=== PATIENT | female | born 1985 | race Caucasian/White ===

== ENCOUNTER 2020-03-09 14:56 | Outpatient (CLI) | payer OTHER, BC, SELFPAY ==
[2020-03-09 15:33] LABS: Hematocrit 41.1 % (37.0-47.0); Hemoglobin 13.8 g/dL (12.0-15.0); Mean Corpuscular HGB Conc 33.6 g/dl (32-36); Mean Corpuscular Hemoglobin 29.6 pg (26-34); Mean Platelet Volume 10.3 fl (7.4-10.4); Platelet Count Result 274 k/mm3 (150-375); Red Blood Count 4.67 M/mm3 (4.2-5.4); Red Cell Distribution Width 14.6 % (11.5-14.5); White Blood Count 8.4 K/mm3 (4.5-10.0)
[2020-03-10 07:47] LABS: Rapid Plasma Reagin Non-Reactive (NonReactive)
== END 2020-03-09 14:57 | disposition home or self-care (01) ==
PROVIDERS: Visit Provider Obstetrics & Gynecology
DX: Z01.818 Encounter for other preprocedural examination (principal)
CPT/HCPCS: 36415; 85027; 85461; 86592

== ENCOUNTER 2020-03-10 09:05 | Inpatient (IN) | payer OTHER, BC, SELFPAY ==
[2020-03-10] VITALS (27 sets, daily range): BP systolic 101–134; BP diastolic 42–102; PULSE 65–120; RESP 16–18; TEMP 36–37; O2SAT 95–99; BMI 41.1
--- NOTE | 2020-03-10 09:15 | LDADM ---
This patient, Bozena Paredes, was admitted to Labor/Delivery/Recovery 119 on 03/10/20 at 09:05. Plans for section, pain management and were discussed with patient. Patient/family oriented to hospital policies and general routines including ID bracelet, bed and alarms, visiting hours, pain management, procedures, bathroom and other care routines, personal items, smoking policy, room service/diet and guest tray routines, security routines, and visiting hours. Patient/Family are encouraged to report perceived risks to care and to ask questions if they do not understand what they are told or what they should do. See OBIX for further documentation.
[2020-03-10] MEDS: LACTATED RINGERS 1,000 ML 125 ML IV CONT ×2 (09:42→10:38)
--- NOTE | 2020-03-10 10:17 | LDADM ---
This patient, Bozena Paredes, was admitted to Labor/Delivery/Recovery 119 on 03/10/20 at 09:05. Plans for labor, pain management and were discussed with patient. Patient/ oriented to hospital policies and general routines including ID bracelet, bed and alarms, visiting hours, pain management, procedures, bathroom and other care routines, personal items, smoking policy, room service/diet and guest tray routines, infant security routines, call light, and visiting hours. Patient/ are encouraged to report perceived risks to care and to ask questions if they do not understand what they are told or what they should do. See OBIX for further documentation.
[2020-03-10] MEDS: ceFAZolin 2 GM/D5W 50 ML 2 GM/50 ML BAG IVPB (10:38)
--- NOTE | 2020-03-10 11:03 | PM.IMHP ---
H&P: HPI History of Present Illness Chief complaint: section Narrative: Bozena Paredes is a 34 year old female presents for primary section due to breech presentation. Also recent ultrasound showed oligohydramnios and therefore would proceeding with delivery today as opposed to next week as originally scheduled. records are on the chart and no specific other issues are noted. Review of Systems Review of Systems: All systems reviewed & are unremarkable except as noted in HPI and below PMFSH Family History Family History Father Hypertension Mother Hypertension COPD (chronic obstructive pulmonary disease) Social History Social History Smoking status: Never smoker Substance use: never Gender identity (if verbalized by the patient): Female Sexual Orientation (if Verbalized by the Patient): Straight or Heterosexual Spiritual care concerns: No Meds Home Medications and Allergies Home Medications Medication Instructions Recorded Confirmed Type PNV cmb#95-ferrous fumarate-FA 1 tablet PO DAILY 02/21/20 02/21/20 History [] Allergies Allergy/AdvReac Type Severity Reaction Status Date / Time prednisone Allergy Unknown breast Verified 09/15/17 21:20 tenderness, abnormal menses, spotting Vital Signs Vital Signs - 24 hr 03/10/20 09:29 Pulse Rate 120 H Blood Pressure 126/85 Exam Const: General: no acute distress Resp: Auscultation: clear to auscultation bilaterally Cardio: Rate: regular rate Rhythm: regular rhythm GI: GI Palp: Yes Soft to palpation Other: Fundal height 39cm breech by Darin maneuver heart tones 140 Assessment and Plan Assessment and plan (1) Term : Code(s): Z34.90 - Encounter for supervision of normal , unspecified, unspecified trimester Status: Acute (2) Breech presentation: Code(s): O32.1XX0 - Maternal care for breech presentation, not applicable or unspecified Status: Acute Additional Plan Proceed with primary low-transverse section.
--- NOTE | 2020-03-10 11:54 | P.PCNOB_ITS ---
OB - Delivery Note Procedure events: Oligohydramnios (breech presentation) Route of delivery: Estimated blood loss (mL): 300 Anesthesia type: Spinal Disposition: PACU Narrative: Patient prepped draped usual manner for this procedure. Pfannenstiel incision was made which was then carried down to the fascia which was extended bilaterally the length of the skin incision. Superiorly and inferiorly dissected away from the muscles which were then bluntly dissected to develop the bladder flap. Uterus was scored with clear fluid noted and low transverse incision was made. Breech was delivered without difficulty cord clamped and cut and placenta was removed manually. Uterus was exteriorized closed using 0 Monocryl in a running interlocking manner with good approximation hemostasis noted. Onur was empirically placed in this area for hemostasis. Uterus was turned the abdomen all subfascial tissue was noted be hemostatic and the fascia was approximated using 0 Vicryl from left angle to midline right at Marlene good approximation noted. Subcutaneous tissue was hemostatic and approximated using 2 0 plain suture. [place] were then used to approximate the skin edges. Patient up procedure well sent to recovery room stable condition. [place] Baby Weeks of gestation at delivery: 39 Infant gender: Male Weight (pounds): 9 Weight (ounces): 5 score one minute: 9 score five minutes: 9
[2020-03-10] MEDS: OXYTOCIN 30 UNITS/NS 500 ML 30 UNITS/500 ML BAG 125 UNITS IV CONT (13:30)
--- NOTE | 2020-03-10 15:15 | PC.NURSE ---
Consulted with patient, mother reports infant eagerly latched for first feeding. Reviewed feeding cues, frequencies, duration of feedings, feeding elimination flow sheet, and signs of adequate intake. Demonstrated stimulation techniques to wake for feeding. Assisted with to breast. Reviewed positioning/alignment in football, holding breast in C hold and guided asymmetrical latch on. Discussed rational for each. was sleepy and made a few weak attempts in 15 minutes. Suggested mother skin to skin and attempt again in 30 minutes.
[2020-03-10] MEDS: DEXTROSE 5%/0.45% SOD CHL 1,000 ML 125 ML IV CONT (17:40)
[2020-03-10] MEDS: DOCUSATE SODIUM 100 MG CAPSULE PO (17:43)
[2020-03-10] MEDS: LANOLIN (LANSINOH) 7.5 GM CREAM 1 APPLIC TOPICAL (17:43)
--- NOTE | 2020-03-10 18:35 | PC.NURSE ---
1418 Pt admitted to room 282 per stretcher from labor and delivery after primary delivery of viable male infant at [address] Bryant. Baby was in Breech position. Mother is a and is choosing to breast feed . FOB present. Couple oriented to room, staffing and procedures; admission folder reviewed. Pt's VSS and assessment WNL.
[2020-03-10] MEDS: IBUPROFEN 600 MG TABLET PO (20:59)
[2020-03-11 00:35] VITALS: BP 123/80; PULSE 81; RESP 16; TEMP 36.2; O2SAT 95
[2020-03-11 05:02] LABS: Basophils Percent Auto 0.4 % (0.2-1.2); Eosinophils Absolute Auto 0.2 K/mm3 (0-0.3); Eosinophils Percent Auto 1.5 % (0-4.4); Hemoglobin 11.8 g/dL (12.0-15.0); Immature Granulocyte Absolute 0.03 K/mm3 (0.00-0.031); Immature Granulocyte Percent A 0.3 % (0-0.5); Lymphocytes Absolute Auto 2.26 K/mm3 (0.9-3.2); Mean Corpuscular HGB Conc 33.7 g/dl (32-36); Mean Corpuscular Hemoglobin 29.7 pg (26-34); Mean Corpuscular Volume 88.2 fl (80-100); Mean Platelet Volume 10.1 fl (7.4-10.4); Monocytes Absolute Auto 0.9 K/mm3 (0.1-0.6); Monocytes Percent Auto 8.9 % (2.6-8.5); Neutrophils Absolute Auto 6.5 K/mm3 (1.3-6.7); Neutrophils Percent Auto 65.9 % (45.5-73.1); Platelet Count Result 222 k/mm3 (150-375); Red Blood Count 3.97 M/mm3 (4.2-5.4); Red Cell Distribution Width 14.4 % (11.5-14.5); White Blood Count 9.8 K/mm3 (4.5-10.0)
[2020-03-11 05:05] VITALS: BP 124/78; PULSE 101; RESP 16; TEMP 36.6; O2SAT 98
[2020-03-11] MEDS: IBUPROFEN 600 MG TABLET PO ×3 (05:33→17:53)
[2020-03-11 08:05] VITALS: BP 121/70; PULSE 84; RESP 16; TEMP 36.6; O2SAT 100
[2020-03-11] MEDS: DOCUSATE SODIUM 100 MG CAPSULE PO ×2 (08:36→17:53)
[2020-03-11] MEDS: MULTIVIT/MIN/PREN/FOL AC/IRON TABLET 1 TAB PO (08:36)
--- NOTE | 2020-03-11 09:30 | PC.NURSE ---
Consult with pt., mother reports has been sleepy with difficulties latching. Mother has initiated pumping and has given EBM during the night. Discussed ICP suggestion of supplementation due to poor feeding status. Mother is willing to supplement as needed. Mother states she has just attempted to breast with no latch. She is attempting EBM by bottle, infant is sleepy and not suckling. Assisted with bottle feeding. Stimulated to wake and worked 10 min for 5mls EBM. Worked with for 15/20 minutes to nipple 15 mls of formula. With the last 5 mls infant was eagerly suckling with organized suck swallow.
--- NOTE | 2020-03-11 09:30 | PC.NURSE ---
Requested mother call out for assist next feeding. Discussed feeding plan to put infant to breast first, then supplement if no effective feeding and to pump.
--- NOTE | 2020-03-11 09:45 | WPDANLDPN2 ---
Anes-Prog Note L&D Date/Time: 03/11/20 09:45 Comfortable throughout: section Neuraxial method: spinal Epidural/Spinal procedure site: clean & non-tender Neuro status: Neuro function grossly intact. Cardiovascular status: normal Respiratory status: normal Airway patency: baseline Mental status: baseline Post-Op hydration status: normal Vital Signs: Last Vital Signs Temp 36.6 C 03/11/20 08:05 Pulse 84 03/11/20 08:05 Resp 16 03/11/20 08:05 BP 121/70 03/11/20 08:05 Pulse Ox 100 03/11/20 08:05 I/O: Intake & Output 03/10/20 03/11/20 03/11/20 23:59 07:59 15:59 Intake Total 900 1200 Output Total 175 2200 600 Balance 725 -1000 -600 Post-procedural complaints: none Patient feedback: Patient satisfied with anesthetic care.
--- NOTE | 2020-03-11 09:46 | WPDANLDNPN2 ---
Anes-Prog Note L&D-Neuraxial Date/Time: 03/11/20 09:46 Neuraxial medications: intrathecal PF morphine Opiod-related complaints: none Patient feedback: Patient satisfied with post-operative pain management.
--- NOTE | 2020-03-11 12:37 | P.PNOB_ITS ---
OB - PN: Subj Subjective Date/time seen: 03/11/20 12:37 Patient comments: pain well controlled (some soreness) and tolerating diet baby status: doing well feeding status: breast and bottle feeding Narrative: s/p pLTCS secondary to breech presentation. Feeling sore, but doing well overall. Ambulating, Tolerating diet. OB - PN: Obj Data Labs CBC & Chem 7: 03/11/20 04:53 Labs: Laboratory Results - last 24 hr 03/11/20 04:53 WBC 9.8 RBC 3.97 L Hgb 11.8 L Hct 35.0 L MCV 88.2 MCH 29.7 MCHC 33.7 RDW 14.4 Plt Count 222 MPV 10.1 Immature Gran % (Auto) 0.3 Neut % (Auto) 65.9 Lymph % (Auto) 23.0 [place] % (Auto) 8.9 H Eos % (Auto) 1.5 Baso % (Auto) 0.4 Lymph # (Auto) 2.26 [place] # (Auto) 0.9 H Eos # (Auto) 0.2 Baso # (Auto) 0.0 Abs Immat Gran (auto) 0.03 Absolute Neuts (auto) 6.5 Absolute Nucleated RBC 0.0 Nucleated RBC % 0.0 OB - PN A/P Assessment and Plan (1) delivery, delivered, current hospitalization: Code(s): O82 - Encounter for delivery without indication Status: Acute Assessment and Plan: Routine post post op care Pain management Ambulate Time Spent With Patient Time: Total time spent is greater than 50% in coordination of care (as documented) at patient's floor/unit and/or counseling patient: Exam Const: General: comfortable, no acute distress, alert and awake Orientation/consciousness: patient oriented x3 Resp: Effort & Inspection: normal respiratory effort Cardio: Rate: regular rate
[2020-03-11 19:17] VITALS: BP 133/92; PULSE 101; RESP 16; TEMP 36.7; O2SAT 99
[2020-03-12] MEDS: IBUPROFEN 600 MG TABLET PO ×2 (03:22→13:53)
[2020-03-12 07:00] VITALS: BP 112/67; PULSE 101; RESP 18; TEMP 37.1; O2SAT 99
[2020-03-12] MEDS: MULTIVIT/MIN/PREN/FOL AC/IRON TABLET 1 TAB PO (07:16)
[2020-03-12] MEDS: DOCUSATE SODIUM 100 MG CAPSULE PO (07:17)
--- NOTE | 2020-03-12 10:20 | PC.NURSE ---
Mother called out for assist with feeding, reporting was not latching during the night and fussy with attempts. latched a few times nursing inconsistently, mother then supplemented. Mother was pleased latched the last feeding with assist from RN. Mother believes her milk is transitioning in and states she could hear swallowing last feeding. Advised mother to self express milk into infant's mouth before starting latch. Mother is able to independently latch infant with appropriate positioning/alignment football positioning. Infant licked at self expressed milk and began eagerly rooting. Mother latched deeply, he quickly began nursing with long draws and freq swallowing. Mother denies discomfort with this feeding. Discussed when to discontinue supplementation. Advised mother if continues to latch and nurse as this feeding, to discontinue supplement and only supplement if he refuses to latch. Mother is planning on discharge this day. Mother is feeding as required and waking to feed if needed. Infant is currently meeting outcomes for weight, output, jaundice and feeding frequencies. Mother states she feels confident to continue effective at home. Mother feels latch issues are not resolved with her milk in. Reviewed transition to breast milk, signs of adequate intake, and engorgement/relief. Instructed to call ICP if intake/output less than required. Reviewed regular medications mother is taking. Information provided per [place]. Reviewed community resources on the [facility] website and in the Mom/Baby guide. Information on outpatient services provided. Mother has no further questions at this time.
--- NOTE | 2020-03-12 12:21 | P.PNOB_ITS ---
OB - PN: Subj Subjective Date/time seen: 03/12/20 12:21 Patient comments: pain well controlled [place] baby status: doing well feeding status: pumping and bottle feeding Narrative: Pain controlled, ambulating, tolerating diet, passing flatus. OB - PN: Obj Data Labs CBC & Chem 7: 03/11/20 04:53 OB - PN A/P Assessment and Plan (1) delivery, delivered, current hospitalization: Code(s): O82 - Encounter for delivery without indication Status: Acute Assessment and Plan: Routine post post op care Pain management Ambulate Ok for DC home today Time Spent With Patient Time: Total time spent is greater than 50% in coordination of care (as documented) at patient's floor/unit and/or counseling patient: Exam Const: General: comfortable, no acute distress, alert and awake Orientation/consciousness: patient oriented x3 Resp: Effort & Inspection: normal respiratory effort Auscultation: clear to auscultation bilaterally Cardio: Rate: regular rate Rhythm: regular rhythm GI: Other: Soft, some tenderness. Incision C/D/I, [place] in place. Some erythema from bandage tape. Neuro: General: patient oriented x3
--- NOTE | 2020-03-12 12:23 | P.DS_ITS ---
DS: Admitting Diagnosis Admitting Diagnosis Admitting Diagnosis: Encounter for supervision of normal , unspecified, unspecified trimester Breech presentation DS: Discharge Diagnosis Discharge Diagnosis (1) delivery, delivered, current hospitalization: Code(s): O82 - Encounter for delivery without indication Status: Acute Assessment and Plan: Routine post post op care Pain management Ambulate Ok for DC home today DS: Summary Time Spent with Patient Time attestation: Total time spent providing and/or coordinating discharge services: Exam Const: General: comfortable, no acute distress, alert and awake Orientation/consciousness: patient oriented x3 Resp: Effort & Inspection: normal respiratory effort Auscultation: clear to auscultation bilaterally Cardio: Rate: regular rate Rhythm: regular rhythm GI: Other: Soft, some tenderness. Incision C/D/I, [place] in place. Some erythema from bandage tape. Neuro: General: patient oriented x3 Discharge Plan Discharge Attending physician on discharge: Thien Bryant Discharging Clinician: Oscar Brannon Patient Disposition: Home, Self-Care Activity: as tolerated Diet: regular Patient Instructions: Antibiotic Form Stand Alone Forms: General Discharge Information Follow-up/Referrals: Thien Bryant MD [Physician] - Discharge Medications: New hydrocodone-acetaminophen 5-325 mg Tablet 1 tab PO Q6-8H PRN (Reason: Moderate Pain (4-6)) Qty: 18 RF: 0 docusate sodium 100 mg Capsule 100 mg PO BID Qty: 60 RF: 0 ibuprofen 600 mg Tablet 600 mg PO Q6H PRN (Reason: Cramping) Qty: 60 RF: 0 Continued PNV cmb#95-ferrous fumarate-FA [] 28 mg iron- 800 mcg Tablet 1 tablet PO DAILY RF: 0 Date of admission: 03/10/20 09:05 Primary Care Provider: PHYSICIAN,INDUSTRIAL ENGINEER Admitting Provider: Thine Bryant Attending physician on admission: Thien Bryant
--- NOTE | 2020-03-12 18:53 | PC.NURSE ---
1530 Mother read discharge papers for herself and baby; signed discharge papers in understanding.
[2020-03-13 11:19] VITALS: BP 131/85; PULSE 51; RESP 20; TEMP 36.9; O2SAT 100
== END 2020-03-12 16:00 | disposition home or self-care (01) | DRG 788 ==
LOC: ANHOB2 03-12 14:40 → ANHLDR 03-13 08:36 → ANHOB2 03-13 08:36
PROVIDERS: Admitting Provider Obstetrics & Gynecology; Visit Provider Obstetrics & Gynecology
PROC: 10D00Z1 Extraction of Products of Conception, Low, Open Approach (ICD-10-PCS; CPT 59514; principal; 2020-03-10 11:30)
DX: O41.03X0 Oligohydramnios, third trimester, not applicable or unspecified (principal); Z37.0 Single live birth; Z3A.39 39 weeks gestation of pregnancy; O32.1XX0 Maternal care for breech presentation, not applicable or unspecified
CPT/HCPCS: 36415; 85025; A9270; J0131; J0690; J2274; J2405; J2590; J7120

== ENCOUNTER 2021-11-25 15:44 | Emergency (ER) | payer OTHER, SELFPAY ==
--- NOTE | 2021-11-25 15:49 | ED.EAR ---
HPI - Ear Problem General Chief complaint: Ear Stated complaint: Lt Ear Pain Time Seen by Provider: 11/25/21 15:52 Source: patient Mode of arrival: ambulatory Limitations: no limitations History of Present Illness HPI Narrative: 36 y/o female presented for c/o left ear pain and associated sinus pressure/congestion x2 week. Pain is worsening. Recent covid 10/2021, since then has had cough. Was taking zyrtec prior to covid, has not been taking anything for allergy symptoms. Denies tinnitus, vertigo, cp, sob, wheezing, n/v/d/f/c. MD Complaint: ear pain Related Data Home Medications Medication Instructions Recorded Confirmed drospirenone-ethinyl estradiol 1 tablet PO DAILY 11/25/21 11/25/21 Allergies Allergy/AdvReac Type Severity Reaction Status Date / Time prednisone Allergy Unknown breast Verified 11/25/21 15:58 tenderness, abnormal menses, spotting Review of Systems Review of Systems: CONSTITUTIONAL: Denies malaise, chills, or fever. EYES: Denies visual changes, redness, or discharge. ENT: reports ear pain rhinorrhea, congestion, sinus pain CARDIOVASCULAR: Denies chest pain, palpitations, or edema. RESPIRATORY: reports cough denies dyspnea. GASTROINTESTINAL: Denies abdominal pain, nausea, vomiting, diarrhea SKIN: Denies rash or itching. MUSCULOSKELETAL: Denies myalgia. NEUROLOGIC: Denies headache. All systems reviewed & are unremarkable except as noted in HPI and below PMFSH Family History Family History Father Hypertension Mother Hypertension COPD (chronic obstructive pulmonary disease) Social History Social History Smoking status: Never smoker Substance use: never Gender identity (if verbalized by the patient): Female Sexual Orientation (if Verbalized by the Patient): Straight or Heterosexual Spiritual care concerns: No Comments At time of signature, agree with nursing past medical, surgical, social and family history. There is no relevant family history pertinent to the presenting complaint Exam Narrative: GENERAL: Ill-appearing no acute distress. HEAD: Normocephalic EYES: PERRLA, conjunctivae clear ENT: Nares clear. Mucous membranes moist. TM pearly arana, dull bilaterally, left canal erythematous; no tragal tenderness. Oropharynx not erythematous without lesions. Tonsils not enlarged and without exudate, no drooling, no hoarseness, no trismus, uvula midline. NECK: Supple. No lymphadenopathy CHEST: Clear to auscultation, breath sounds equal. No wheezing, rhonchi, rales, or stridor. No respiratory distress, speaks in full sentences. HEART: Regular rate and rhythm. No murmur heard. SKIN: Warm, dry, no rash. NEURO: Alert and oriented x3. PSYCH: Normal mood and affect Course Course Emergency Course: Patient is aware of diagnosis, understands and agrees to treatment plan. Anticipatory guidance given. Patient agrees to follow-up as directed and is aware of reasons to seek care at the emergency department. Portions of this record may have been created with voice recognition software Level of Care: Express Care Visit Vital Signs Vital signs: Reviewed Medical Decision Making MDM Narrative Medical decision making narrative: Pt presented with 2 weeks of URI sx unrelieved with otc meds. No signs TM rupture. She will f/u with pcp. Pt is appropriate for outpt treatment. Differential Diagnosis Differential Diagnosis: Influenza, covid, sinusitis, OM, strep pharyngitis, URI Discharge Plan Discharge Clinical Impression: URI (upper respiratory infection) Qualifiers: URI type: unspecified URI Qualified Code(s): J06.9 - Acute upper respiratory infection, unspecified Acute otalgia Qualifiers: Laterality: left Qualified Code(s): H92.02 - Otalgia, left ear Patient Disposition: Home, Self-Care Condition: Stable Instructions: Antibiotic Form, Ear Infection (ED)
[2021-11-25 15:51] VITALS: BP 135/81; PULSE 101; RESP 18; TEMP 36.3; O2SAT 98
== END 2021-11-25 16:04 | disposition home or self-care (01) ==
PROVIDERS: Emergency Provider Nurse Practitioner Family
DX: J06.9 Acute upper respiratory infection, unspecified (principal); H92.02 Otalgia, left ear; Z86.16 Personal history of COVID-19
CPT/HCPCS: 99213; G0463

== ENCOUNTER 2022-01-31 10:02 | Emergency (ER) | payer OTHER, SELFPAY ==
[2022-01-31 10:30] VITALS: BP 125/81; PULSE 92; RESP 18; TEMP 36.9; O2SAT 98
--- NOTE | 2022-01-31 10:45 | ED.URI ---
HPI - URI/Sore Throat General Chief Complaint: Upper Respiratory Infection Stated Complaint: congestion,nausea Time Seen by Provider: 01/31/22 10:45 Source: patient Mode of arrival: ambulatory Limitations: no limitations History of Present Illness HPI Narrative: 36-year-old female presents with complaint of sinus congestion, sinus pressure, runny nose, postnasal drainage, fatigue for 3 weeks. Reports some days her sinuses feel clear other days her sinuses feel full. Zyrtec daily. States that nasal drainage has gone from clear to yellowish-green. Reports ear fullness. Woke up this morning with dizziness. No nausea vomiting diarrhea. No fever chills. All systems reviewed and negative except as noted above. Related Data Home Medications Medication Instructions Recorded Confirmed drospirenone-ethinyl estradiol 1 tablet PO DAILY 11/25/21 01/31/22 Allergies Allergy/AdvReac Type Severity Reaction Status Date / Time prednisone Allergy Unknown breast Verified 01/31/22 10:44 tenderness, abnormal menses, spotting Review of Systems Review of Systems: CONSTITUTIONAL: Denies fever, chills, or sweats. Reports fatigue EYES: Denies visual changes, redness, or discharge. ENT: Reports rhinorrhea, congestion, sore throat, and otalgia. CARDIOVASCULAR: Denies chest pain, palpitations, or edema. RESPIRATORY: Denies cough or dyspnea. GASTROINTESTINAL: Denies abdominal pain, nausea, vomiting, or diarrhea. GENITOURINARY: Denies dysuria or hematuria. SKIN: Denies rash or itching. MUSCULOSKELETAL: Denies back pain, joint pain, or myalgia. NEUROLOGIC: Denies headache, numbness, or weakness. PSYCHIATRIC: Denies anxiety or depression. All other systems reviewed are negative, except as documented in HPI. [facility] Family History Family History (System 01/26/22 @ 12:18 by Skylar Alcantara) Father Hypertension Mother Hypertension COPD (chronic obstructive pulmonary disease) Social History Social History (System 01/26/22 @ 12:18 by Skylar Alcantara) Smoking status: Never smoker Substance use: never Gender identity (if verbalized by the patient): Female Sexual Orientation (if Verbalized by the Patient): Straight or Heterosexual Spiritual care concerns: No Comments At time of signature, agree with nursing past medical, surgical, social and family history. There is no relevant family history pertinent to the presenting complaint. Exam Narrative: GENERAL: This is a well-nourished, well-developed patient, in no apparent distress. HEAD: normocephalic, atraumatic. EYES: PERRL. Sclera clear/white. Vision is grossly intact. EARS: External ears normal, auditory canals clear and without drainage, TMs normal without perforation. Hearing grossly intact. NOSE: External nose normal with clear nasal drainage, mild congestion, maxillary sinus tenderness bilaterally. THROAT: Mucous membranes moist, posterior pharynx Postnasal drainage noted. NECK: Neck supple, non-tender without lymphadenopathy, masses or thyromegaly. CARDIOVASCULAR: Regular rate and rhythm without murmurs, gallops, or rubs. RESPIRATORY: Clear to auscultation. Breath sounds equal bilaterally. No wheezes, rales, or rhonchi. SKIN: warm, Dry, intact with no suspicious lesions or rash, good texture and turgor. NEURO: awake, alert, and oriented to person, place and time. There were no obvious focal neurologic abnormalities. EXTREMITIES: Normal range of motion to all extremities. Course Course Level of Care: Express Care Visit Vital Signs Vital signs: Vital Signs Temperature 36.9 C 01/31/22 10:30 Pulse Rate 92 01/31/22 10:30 Respiratory Rate 18 01/31/22 10:30 Blood Pressure 125/81 01/31/22 10:30 Pulse Oximetry 98 01/31/22 10:30 Temperature 36.9 C 01/31/22 10:30 Pulse Rate 92 01/31/22 10:30 Respiratory Rate 18 01/31/22 10:30 Blood Pressure 125/81 01/31/22 10:30 Pulse Oximetry 98 01/31/22 10:30 Reviewed MDM
== END 2022-01-31 11:00 | disposition home or self-care (01) ==
PROVIDERS: Emergency Provider Nurse Practitioner Family
DX: J01.90 Acute sinusitis, unspecified (principal); Z86.16 Personal history of COVID-19
CPT/HCPCS: 99213; G0463

== ENCOUNTER 2022-09-01 16:56 | Emergency (ER) | payer OTHER, SELFPAY ==
[2022-09-01 17:05] VITALS: BP 127/81; PULSE 94; RESP 18; TEMP 36.7; O2SAT 98
--- NOTE | 2022-09-01 18:02 | ED.URI ---
HPI - URI/Sore Throat General Chief Complaint: Upper Respiratory Infection Stated Complaint: Congestion,Lt Ear Irritation Source: patient Mode of arrival: ambulatory History of Present Illness HPI Narrative: This is a 37-year-old female who presented to our urgent care with complaints of nasal , ear and chest congestion. I uncontrollable cough with yellowish to dark brownish secretion. Patient notes that she has had these symptoms since August 18. Patient notes that she took Mucinex at home along and use a nasal steamer with no relief. Patient notes that pressure in her left ear worsened she decided to come to our . The patient denies SOB, CP, palpitation, extremity numbness, lightheadedness, dizziness, constipation, diarrhea, chills, or fever. Related Data Allergies Allergy/AdvReac Type Severity Reaction Status Date / Time prednisone AdvReac Unknown breast Verified 09/01/22 17:01 tenderness, abnormal menses, spotting Review of Systems Review of Systems: A 14 organ system Review of Systems was performed and pertinent positives included in the HPI, otherwise remaining ROS is negative. COUNT INCLUDES THE [facility] Family History Family History (System 01/26/22 @ 12:18 by Skylar Alcantara) Father Hypertension Mother Hypertension COPD (chronic obstructive pulmonary disease) Social History Social History (System 01/26/22 @ 12:18 by Skylar Alcantara) Smoking status: Never smoker Substance use: never Gender identity (if verbalized by the patient): Female Sexual Orientation (if Verbalized by the Patient): Straight or Heterosexual Spiritual care concerns: No Exam Narrative: GENERAL: This is a well-nourished, well-developed patient, in no apparent distress. HEAD: normocephalic, atraumatic. EYES: PERRL. Sclera clear/white. Vision is grossly intact. EARS: External ears normal, auditory canals clear and without drainage, TMs normal without perforation. Hearing grossly intact. NOSE: External nose normal with no obvious nasal discharge, nares without redness, no rhinorrhea. THROAT: Mucous membranes moist, posterior pharynx clear. NECK: Neck supple, non-tender without lymphadenopathy, masses or thyromegaly. CARDIOVASCULAR: Regular rate and rhythm without murmurs, gallops, or rubs. RESPIRATORY: Clear to auscultation. Breath sounds equal bilaterally. No wheezes, rales, or rhonchi. GASTROINTESTINAL: Abdomen soft, non-tender, nondistended. Bowel sounds are active. No hepato-splenomegaly, or palpable masses. No guarding. SKIN: warm, intact with no suspicious lesions or rash, good texture and turgor. NEURO: awake, alert, and oriented to person, place and time. There were no obvious focal neurologic abnormalities. EXTREMITIES: Normal range of motion. No edema. No calf tenderness. Course Course Level of Care: Express Care Visit Vital Signs Vital signs: Vital Signs Temperature 98.0 F 09/01/22 17:05 Pulse Rate 94 09/01/22 17:05 Respiratory Rate 18 09/01/22 17:05 Blood Pressure 127/81 09/01/22 17:05 Pulse Oximetry 98 09/01/22 17:05 Oxygen Delivery Room Air 09/01/22 17:05 Temperature 98.0 F 09/01/22 17:05 Pulse Rate 94 09/01/22 17:05 Respiratory Rate 18 09/01/22 17:05 Blood Pressure 127/81 09/01/22 17:05 Pulse Oximetry 98 09/01/22 17:05 Oxygen Delivery Room Air 09/01/22 17:05 MDM - URI/Sore Throat MDM Narrative Medical decision making narrative: Patient will discharge home with Augmentin, Tessalon Perles, guaifenesin, and clear to Differential Diagnosis Differential diagnosis: Likely upper respiratory infection, otitis media, sinusitis, bronchitis and influenza Discharge Plan Discharge Clinical Impression: Sinusitis Patient Disposition: Home, Self-Care Condition: Stable Instructions: Antibiotic Form, Sinusitis (ED) Prescriptions: New amoxicillin-pot clavulanate [Augmentin] 500-125 mg tablet 1 tablet PO Q12H 10 Days Qty: 20 0RF guaifen
== END 2022-09-01 18:02 | disposition home or self-care (01) ==
PROVIDERS: Emergency Provider Nurse Practitioner
DX: J32.9 Chronic sinusitis, unspecified (principal)
CPT/HCPCS: 99213; G0463

== ENCOUNTER 2023-01-20 19:09 | Emergency (ER) | payer OTHER, SELFPAY ==
[2023-01-20 20:00] VITALS: BP 135/82; PULSE 100; RESP 16; TEMP 36.6; O2SAT 97
--- NOTE | 2023-01-20 20:05 | ED.URI ---
HPI - URI/Sore Throat General Chief Complaint: Upper Respiratory Infection Stated Complaint: cough,congestion Time Seen by Provider: 01/20/23 20:05 Source: patient Mode of arrival: ambulatory Limitations: no limitations History of Present Illness HPI Narrative: 37-year-old female presents with complaint of cough, sinus congestion, postnasal drainage for the past 10-12 days. Reports symptoms getting progressively worse. Is taking [id number] cold and sinus medications without relief of symptoms. Takes Claritin daily for allergies. Reports coughing fits cause chest tightness and shortness of breath. All systems reviewed and negative except as noted above. Related Data Allergies Allergy/AdvReac Type Severity Reaction Status Date / Time prednisone AdvReac Intermediate breast Verified 01/20/23 20:13 tenderness, abnormal menses, spotting Review of Systems Review of Systems: CONSTITUTIONAL: Denies fever, chills, or sweats. reports fatigue EYES: Denies visual changes, redness, or discharge. ENT: Reports rhinorrhea, congestion. Denies sore throat, or otalgia. CARDIOVASCULAR: Denies chest pain, palpitations, or edema. RESPIRATORY: reports cough. Denies dyspnea. GASTROINTESTINAL: Denies abdominal pain, nausea, vomiting, or diarrhea. GENITOURINARY: Denies dysuria or hematuria. SKIN: Denies rash or itching. MUSCULOSKELETAL: Denies back pain, joint pain, or myalgia. NEUROLOGIC: Denies headache, numbness, or weakness. PSYCHIATRIC: Denies anxiety or depression. All other systems reviewed are negative, except as documented in HPI. 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 Scoliosis Vaginal delivery 02/08/16 no complications, epidural didn't take b/c of scoliosis Jennifer 12/15/17 no complications [facility] Surgical History Surgical History History of 03/10/20 primary c/s-breech presentation History of colposcopy with cervical biopsy 06/20/06 LGSIL TRISH I History of gynecologic surgery 05/25/11 excisional bx vaginal lesion--molluscum contagiosum History of wisdom tooth extraction (~2003) Family History Family History Father Hypertension Mother Hypertension COPD (chronic obstructive pulmonary disease) Malignant tumor of ovary Social History Social History (Updated 10/03/22 @ 08:05 by Eda Ramirez CMA) Smoking status: Never smoker Alcohol intake: current Alcohol use details: occasional Substance use: never Living arrangements: other Additional living arrangements comments: Occupation/Education: occupation Additional occupation/education comments: [employer] Gender identity (if verbalized by the patient): Female Sexual Orientation (if Verbalized by the Patient): Straight or Heterosexual Spiritual care concerns: No Comments At time of signature, agree with nursing past medical, surgical, social and family history. There is no relevant family history pertinent to the presenting complaint. Exam Narrative: GENERAL: This is a well-nourished, well-developed patient, in no apparent distress. HEAD: normocephalic, atraumatic. EYES: PERRL. Sclera clear/white. Vision is grossly intact. EARS: External ears normal, auditory canals clear and without drainage, fluid bilateral TMs without erythema or perforation. Dull light reflex bilaterally. NOSE: External nose normal with Prelim nasal drainage, erythema and swelling to both nares, bilateral frontal and maxillary sinus tenderness on palpation. THROAT: Mucous membranes moist, Erythema with postnasal draina
== END 2023-01-20 20:36 | disposition home or self-care (01) ==
PROVIDERS: Emergency Provider Nurse Practitioner Family
DX: J01.90 Acute sinusitis, unspecified (principal); R05.1 Acute cough; M41.9 Scoliosis, unspecified
CPT/HCPCS: 99213; G0463

== ENCOUNTER 2023-06-02 08:38 | Emergency (ER) | payer OTHER, SELFPAY ==
[2023-06-02 08:49] VITALS: BP 128/77; PULSE 87; RESP 18; TEMP 36.3; O2SAT 97
--- NOTE | 2023-06-02 08:53 | ED.URI ---
HPI - URI/Sore Throat General Chief Complaint: Upper Respiratory Infection Stated Complaint: Congestion Time Seen by Provider: 06/02/23 08:54 Source: patient and RN notes reviewed Mode of arrival: ambulatory Limitations: no limitations History of Present Illness HPI Narrative: 37-year-old female presents with concern for left ear pain. She reports she has had nasal congestion, runny nose, cough for 10 days. She woke up this morning with bad left ear pain. She denies drainage from the ear. Denies fever, body aches, chills, sweats. MD elicited complaint: nasal congestion and other (Ear pain) Related Data Allergies Allergy/AdvReac Type Severity Reaction Status Date / Time prednisone AdvReac Intermediate breast Verified 06/02/23 08:39 tenderness, abnormal menses, spotting Review of Systems Review of Systems: CONSTITUTIONAL: Denies malaise, chills, sweats, or fever. EYES: Denies visual changes, redness, or discharge. ENT: Reports rhinorrhea, congestion, otalgia CARDIOVASCULAR: Denies chest pain, palpitations, or edema. RESPIRATORY: Reports cough. Denies dyspnea. GASTROINTESTINAL: Denies abdominal pain, nausea, vomiting, diarrhea SKIN: Denies rash or itching. MUSCULOSKELETAL: Denies myalgia. NEUROLOGIC: Denies headache. 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 Scoliosis Vaginal delivery 02/08/16 no complications, epidural didn't take b/c of scoliosis Jennifer 12/15/17 no complications [facility] Surgical History Surgical History History of 03/10/20 primary c/s-breech presentation History of colposcopy with cervical biopsy 06/20/06 LGSIL TRISH I History of gynecologic surgery 05/25/11 excisional bx vaginal lesion--molluscum contagiosum History of wisdom tooth extraction (~2003) Family History Family History Father Hypertension Mother Hypertension COPD (chronic obstructive pulmonary disease) Malignant tumor of ovary Social History Social History (Updated 10/03/22 @ 08:05 by Eda Ramirez CMA) Smoking status: Never smoker Alcohol intake: current Alcohol use details: occasional Substance use: never Living arrangements: other Additional living arrangements comments: Occupation/Education: occupation Additional occupation/education comments: [employer] Gender identity (if verbalized by the patient): Female Sexual Orientation (if Verbalized by the Patient): Straight or Heterosexual Spiritual care concerns: No Comments At time of signature, agree with nursing past medical, surgical, social and family history. There is no relevant family history pertinent to the presenting complaint Exam Narrative: GENERAL: Well-appearing, well-nourished, and in no acute distress. HEAD: Normocephalic EYES: PERRLA, conjunctivae clear ENT: Nares clear, turbinates edematous and erythematous, clear discharge. Mucous membranes moist. Right TM pearly arana with dull light reflex, left TM erythematous and bulging; no tragal tenderness. Oropharynx not erythematous without lesions. Tonsils not enlarged and without exudate, no drooling, no hoarseness, no trismus, uvula midline. NECK: Supple. No lymphadenopathy CHEST: Clear to auscultation, breath sounds equal. No wheezing, rhonchi, rales, or stridor. No respiratory distress, speaks in full sentences. HEART: Regular rate and rhythm. No murmur heard. SKIN: Warm, dry, no rash. NEURO: Alert and oriented x3. PSYCH: Normal mood and affect Course Course Emerg
== END 2023-06-02 09:03 | disposition home or self-care (01) ==
PROVIDERS: Emergency Provider Nurse Practitioner
DX: H66.92 Otitis media, unspecified, left ear (principal); M41.9 Scoliosis, unspecified
CPT/HCPCS: 99213; G0463

== ENCOUNTER 2023-06-11 13:34 | Emergency (ER) | payer OTHER, SELFPAY ==
[2023-06-11 13:49] VITALS: BP 121/84; PULSE 100; RESP 18; TEMP 36.4; O2SAT 98
--- NOTE | 2023-06-11 14:38 | ED.EAR ---
HPI - Ear Problem General Chief complaint: Ear Stated complaint: lt ear pain Time Seen by Provider: 06/11/23 14:30 Source: patient and RN notes reviewed Mode of arrival: ambulatory Limitations: no limitations History of Present Illness HPI Narrative: Patient presents today complaining of of left ear fullness, ringing, and occasional stabbing pain. She was seen at [facility] on 06/02/2020 3:00 a.m. diagnosed with left otitis media. She was subsequently prescribed a 10 day course of amoxicillin. States symptoms have not improved. She has been taking Zyrtec D, Benadryl, and using Flonase. She has also been sleeping in an inclined position. Related Data Allergies Allergy/AdvReac Type Severity Reaction Status Date / Time prednisone AdvReac Intermediate breast Verified 06/02/23 08:39 tenderness, abnormal menses, spotting Review of Systems Review of Systems: CONSTITUTIONAL: Denies body aches, fever, chills, or sweats. EYES: Denies visual changes, redness, or discharge. ENT: Denies rhinorrhea, congestion, sore throat. + right ear pain, ringing, fullness CARDIOVASCULAR: Denies chest pain, palpitations, or edema. RESPIRATORY: Denies cough or dyspnea. GASTROINTESTINAL: Denies abdominal pain, nausea, vomiting, or diarrhea. GENITOURINARY: Denies dysuria or hematuria. SKIN: Denies rash, itching, or wounds. MUSCULOSKELETAL: Denies back pain, joint pain, or myalgia. NEUROLOGIC: Denies headache, numbness, tingling, or weakness. PSYCH: Denies depression or anxiety. 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 Scoliosis Vaginal delivery 02/08/16 no complications, epidural didn't take b/c of scoliosis Jennifer 12/15/17 no complications [facility] Surgical History Surgical History History of 03/10/20 primary c/s-breech presentation History of colposcopy with cervical biopsy 06/20/06 LGSIL TRISH I History of gynecologic surgery 05/25/11 excisional bx vaginal lesion--molluscum contagiosum History of wisdom tooth extraction (~2003) Family History Family History Father Hypertension Mother Hypertension COPD (chronic obstructive pulmonary disease) Malignant tumor of ovary Social History Social History Smoking status: Never smoker Alcohol intake: current Alcohol use details: occasional Substance use: never Living arrangements: other Additional living arrangements comments: Occupation/Education: occupation Additional occupation/education comments: [employer] Gender identity (if verbalized by the patient): Female Sexual Orientation (if Verbalized by the Patient): Straight or Heterosexual Spiritual care concerns: No Comments At time of signature, I have reviewed and agree with nursing past medical, surgical, social and family history unless otherwise noted. Please see nursing chart for further information. There is no relevant family history pertinent to the presenting complaint Exam Narrative: GENERAL: Well-appearing, well-nourished, and in no acute distress. HEAD: Normocephalic, atraumatic. EYES: EOMI. No redness or drainage. Conjunctivae normal. ENT: Mucous membranes pink and moist. Nares clear. No rhinorrhea. Right TM normal. Left TM with serous effusion. No evidence of bacterial infection. NECK: Normal AROM. Supple. EXTREMITIES: Normal range of motion. No edema. SKIN: Warm, dry, no rash. Capillary refill normal. Normal skin turgor. NEURO: No focal deficits. Alert and oriented x3. Ga
== END 2023-06-11 14:55 | disposition home or self-care (01) ==
PROVIDERS: Emergency Provider Nurse Practitioner
DX: H65.02 Acute serous otitis media, left ear (principal)
CPT/HCPCS: 99213; G0463

== ENCOUNTER → 2023-09-19 11:47 | Outpatient (CLI) | payer OTHER, SELFPAY ==
--- NOTE | ~2023-09-19 | CT_ITS ---
EXAMINATION: CT sinus wo con DATE: 09/19/2023 12:03 INDICATION: Chronic tse sinusitis. Sinus pressure. Bilateral ear pain. Chronic sinus infections. TECHNIQUE: Computed tomography (CT) of the paranasal sinuses was performed without contrast. Iterativ e reconstruction technique was employed. Exam dose: 273.81 mGy-cm total exam DLP. COMPARISON: None FINDINGS: There is leftward bowing of the nasal septum. The nasal turbinates are relatively symmetric . There is some soft tissue thickening in the mid nasal cavities/middle ear Isaiah. Soft tissue thickening at the maxillary ostium and infundibulum on the right. The left ostiomeatal un it is largely patent. There is prominent mucoperiosteal thickening in the maxillary sinuses, prominent patchy soft tissue t hickening of the ethmoid air cells and frontoethmoid area is. There is minimal mucoperiosteal thicken ing along the anterior [place] of the sphenoid sinuses. The mastoid air cells are normally developed and aerated bilaterally. Middle and inner ear apparatus are normal. IMPRESSION: Moderately prominent mucoperiosteal thickening of the maxillary sinuses, patchy soft tis sri thickening of the ethmoids and frontal ethmoid areas and minimal anterior sphenoid sinus mucoperi osteal thickening Soft tissue thickening at the right maxillary ostium and infundibulum Reviewed, dictated and finalized at [facility]. Reviewed, dictated and finalized at [facility] IMPRESSION: Moderately prominent mucoperiosteal thickening of the maxillary si nuses, patchy soft tissue thickening of the ethmoids and frontal ethmoid areas and minimal anterior sphenoid sinus mucoperiosteal thickening Soft tissue thickening at the right maxillary ostium and infundibulum
== END ==
PROVIDERS: PCP Otolaryngology; Visit Provider Otolaryngology
DX: J32.4 Chronic pansinusitis (principal)
CPT/HCPCS: 70486

== ENCOUNTER 2023-10-10 09:05 | Emergency (ER) | payer OTHER, SELFPAY ==
[2023-10-10 09:33] VITALS: BP 127/79; PULSE 111; RESP 18; TEMP 36; O2SAT 95
--- NOTE | 2023-10-10 09:55 | ED.URI ---
HPI - URI/Sore Throat General Chief Complaint: Upper Respiratory Infection Stated Complaint: cough,sob Time Seen by Provider: 10/10/23 09:45 Source: patient Mode of arrival: ambulatory Limitations: no limitations History of Present Illness HPI Narrative: 38 y/o female presented for c/o cough x10 days. Endorses sob with exertion and with coughing fits. Reports this morning mucous was brown/yellow. Pt denies wheezing, cp, n/v/d/f/c. Taking mucinex. Using a previous albuterol inhaler. Related Data Home Medications Medication Instructions Recorded Confirmed fluticasone propionate 93 1 spray intranasal Q12H 10/04/23 10/10/23 mcg/actuation breath activated aerosol (Xhance) Allergies Allergy/AdvReac Type Severity Reaction Status Date / Time prednisone AdvReac Intermediate breast Verified 10/10/23 09:32 tenderness, abnormal menses, spotting Review of Systems Review of Systems: per HPI 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 Nasal polyps Scoliosis Vaginal delivery 02/08/16 no complications, epidural didn't take b/c of scoliosis Jennifer 12/15/17 no complications [facility] Surgical History Surgical History History of 03/10/20 primary c/s-breech presentation History of colposcopy with cervical biopsy 06/20/06 LGSIL TRISH I History of gynecologic surgery 05/25/11 excisional bx vaginal lesion--molluscum contagiosum History of wisdom tooth extraction (~2003) Family History Family History Father Hypertension Mother Hypertension COPD (chronic obstructive pulmonary disease) Malignant tumor of ovary Social History Social History Smoking status: Never smoker Second hand tobacco smoke exposure: No Alcohol intake: current Alcohol use details: occasional 1-2 every 2 months Substance use: never Substance use type: does not use Do You Feel Safe in your Home?: Yes Lack of Transportation: No Lack of Food: Never True Current Housing: I Have Housing Concerned About Future Housing: No Difficulty Paying Gas/Electric Bills: No Difficulty Paying for Meds: No Currently Unemployed: No Education: Bachelor's Degree Difficulty w/ Childcare or Family Care: No Living arrangements: other Additional living arrangements comments: Occupation/Education: occupation 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 Please see nursing chart for further information. There is no relevant family history pertinent to the presenting complaint Exam Narrative: GENERAL: mildly ill-appearing, in no acute distress. EYES: EOMI. No redness or drainage. Conjunctivae normal. ENT: Mucous membranes pink and moist. No rhinorrhea. TMs normal bilaterally. Throat normal. Uvula midline. NECK: Normal AROM. Supple. CHEST: No respiratory distress. Wheezing to all schulz. HEART: Regular rate and rhythm. No murmur appreciated. ABDOMEN: Soft, nontender, nondistended, normal active bowel sounds. SKIN: Warm, dry, no rash. Capillary refill normal. Normal skin turgor. NEURO: Alert and oriented x3. Gait steady. PSYCH: Normal affect
== END 2023-10-10 09:59 | disposition home or self-care (01) ==
PROVIDERS: Emergency Provider Nurse Practitioner Family; PCP Nurse Practitioner
DX: J40 Bronchitis, not specified as acute or chronic (principal); M41.9 Scoliosis, unspecified
CPT/HCPCS: 99213; G0463

== ENCOUNTER 2025-06-21 13:45 | Emergency (ER) | payer OTHER, SELFPAY ==
--- OUTSIDE RECORDS SUMMARY | 2025-06-21 13:53 | XMS_ITS | Clinical Summary ---
Author Organization [facility] Address [address] [place] [address] Care Team Providers Care Project Landscape Architect Name Role Phone Carmen Edwards NP Primary Care Provider [phone] Allergies No known active allergies Medications drospirenone-ethiny l estradiol 3-0.02 MG tablet Take 1 tablet by mouth daily. 3 Active albuterol sulfate HFA 108 (90 Base) MCG/ACT inhaler Inhale 2 puffs into the lungs 4 (four) times daily. 4 Active fluticasone furoate-vilanterol (BREO ELLIPTA) 100-25 MCG/ACT inhalerIndications: Bronchitis,Shortnes s of breath,Wheezing Inhale 1 puff into the lungs daily. 28 each 4 Active cetirizine (ZYRTEC) 10 MG disintegrating tablet Take 1 tablet (10 mg total) by mouth daily. 4 Active fluticasone propionate (FLONASE) 50 MCG/ACT nasal spray 2 sprays by Each Nostril route daily. 4 Active EPINEPHrine 0.3 MG/0.3ML injection Inject 0.3 mLs (0.3 mg total) into the muscle as needed. 4 Active montelukast (SINGULAIR) 10 MG tablet Take 1 tablet (10 mg total) by mouth nightly at bedtime. Active famotidine (PEPCID) 40 MG tablet Take 1 tablet (40 mg total) by mouth daily. Active azelastine (ASTELIN) 0.1 % nasal sprayIndications:Si nusitis, unspecified chronicity, unspecified location 1 spray by Nasal route 2 (two) times daily. Use in each nostril as directed 30 mL Active Active Problems Problem Noted Date Diagnosed Date Recurrent sinus infections 07/31/2023 Obesity (BMI 35.0-39.9 without comorbidity) 07/13 Immunizations Immunization Administration Dates Next Due Tdap (Generic) 02/09/2016 Family History Medical History Relation Comments Hypertension Father Arthritis Maternal Uncle Rheumatoid Arthr itis Asthma Mother COPD Mother Cancer Mother Ovarian Hypertension Mother Relation Status Comments Father Maternal Uncle Mother Social History Tobacco Use Types Packs/Day Years Used Date Smoking Tobacco: Never Passive Smoke Exposure: Past Smokeless Tobacco: Never Tobacco Cessation:Counseling Given: No Alcohol Use Standard Drinks/Week Comments Not Currently 0 (1 standard drink = 0.6 oz pure alcohol) Occasional drink, once every couple of months PHQ-2 Answer Date Recorded Patient Health Questionnaire-2 Score 0 07/31/2023 Comments No Sex and Gender Information Value Date Recorded Sex Assigned at Not on file Legal Sex Female 10:07 AM CDT Gender Identity Not on file Sexual Orientation Not on file Last Filed Vital Signs Vital Sign Reading Time Taken Comments Blood Pressure 102/66 12/12/2023 4:09 PM CDT Pulse 78 12/12/2023 4:09 PM CDT Temperature 36.6 C (97.9 F) 12/12/2023 4:09 PM CDT Respiratory Rate 16 12/12/2023 4:09 PM CDT Oxygen Saturation 98% 12/12/2023 4:09 PM CDT Inhaled Oxygen Concentration - - Weight 89.8 kg (198 lb) 12/12/2023 4:09 PM CDT Height 161.3 cm (5' 3.5) 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 Body Mass Index 34.52 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 Plan of Treatment Health Maintenance Due Date Last Done Comments Cervical Cancer Screening Pa p Smear (Age 30 to 64) Every 3 Years 1986 Hepatitis C 2004 Hepatitis B Vaccines (1 of 3 - 19+ 3-dose series) 2005 HPV Vaccines (1 - 3-dose SCD M series) 2013 Cervical Cancer Screening Pa p with HPV Testing (Age 30 to 64) Every 5 Years 2016 Cervical Cancer Screening with HPV 2016 Annual Physical 07/31/2024 07/31/2023 PHQ-2 (Physician [place]) 09/11/2024 07/31/2023 COVID-19 Vaccine (1 - 2023-2 5 season) 2025 Influenza Adult (#1) 2025 DTaP, Tdap and Td Vaccines ( 2 - Td or Tdap) 02/08/2026 02/09/2016 Meningococcal B Vaccine Aged Out No l onger eligible based on patient's age to complete this topic Meningococcal Vaccine Aged Out No nyla raymond eligible based on patient's age to complete this topic Pneumococcal Vaccine: Pediat rics (0 to 5 Years) and At-Risk Patients (6 to 49 Years) Aged Out No longer eligi ble based on patient's age to complete this topic RSV Immunizations Under 20 Months Aged Out No longer eligible based on patient's age to complete this topic Insurance [facility] Care Teams Project Landscape Architect Relationship Specialty Start Date End Date Carmen Edwards NP [address] [place] [id number] PCP - General NURSE PRACTITIONER 06/07/23
[2025-06-21 13:56] VITALS: BP 128/79; PULSE 90; RESP 18; TEMP 36.6; O2SAT 98
--- NOTE | 2025-06-21 13:56 | ED.URI ---
HPI - URI/Sore Throat General Chief Complaint: Upper Respiratory Infection Stated Complaint: URI Time Seen by Provider: 06/21/25 13:56 Source: patient and RN notes reviewed Mode of arrival: ambulatory Limitations: no limitations History of Present Illness HPI Narrative: 39-year-old female presented for complaint of nasal congestion and drainage, sinus pressure for 2 weeks. Endorses left ear pain for 2 days. Reports history of sinus surgery last year. She takes Paula and as a last seen, and saline rinse daily. Denies cough, shortness of breath, wheezing, nausea vomiting, diarrhea, fevers or chills PE MD elicited complaint: cough Related Data Home Medications ?Medication ?Instructions ?Recorded ?Confirmed ?Last Taken ?Type fexofenadine 180 mg tablet 180 mg PO DAILY 11/19/24 11/19/24 Unknown History (Paula Hives) fluticasone furoate 50 inhalation 11/19/24 11/19/24 Unknown History mcg-vilanterol 25 mcg/dose inhalation powder (Breo Ellipta) Allergies Allergy/AdvReac Type Severity Reaction Status Date / Time prednisone AdvReac Intermediate breast Verified 06/21/25 13:57 tenderness, abnormal menses, spotting Review of Systems Review of Systems: CONSTITUTIONAL: Denies malaise, body aches, chills, sweats, fever EYES: Denies visual changes, redness, or discharge ENT: Reports rhinorrhea, congestion, sinus pain, otalgia, denies sore throat CARDIOVASCULAR: Denies chest pain, palpitations, edema RESPIRATORY: Denies cough, dyspnea GASTROINTESTINAL: Denies abdominal pain, nausea, vomiting, diarrhea SKIN: Denies rash or itching NEUROLOGIC: reports headache PMFSH Past Medical History Medical History Asthma Nasal polyps Vaginal delivery 02/08/16 no complications, epidural didn't take b/c of scoliosis Jennifer 12/15/17 no complications Maricruz Scoliosis HPV in female Abnormal Pap smear of cervix 05/2006 ascus, 06/20/2006 cx bx/ecc: mild dysplasia lgsil, TRISH I, 09/20/2006 ascus, hpv+, 12/29/2006 ascus, hpv-, 07/16/2007 ascus, hpv+, 07/22/2008 ascus, hpv+ : 07/14/2021 +HPV Surgical History Surgical History H/O sinus surgery (12/29/23) deviated septum History of 03/10/20 primary c/s-breech presentation History of gynecologic surgery 05/25/11 excisional bx vaginal lesion--molluscum contagiosum History of colposcopy with cervical biopsy 06/20/06 LGSIL TRISH I History of wisdom tooth extraction (~2003) Family History Family History Father Hypertension Mother Hypertension COPD (chronic obstructive pulmonary disease) Malignant tumor of ovary Social History Social History Smoking status: Never smoker Second hand tobacco smoke exposure: No Alcohol intake: current Alcohol use details: occasional 1-2 every 2 months Substance use: never Substance use type: does not use Do You Feel Safe in your Home?: Yes Lack of Transportation: No Lack of Food: Never True Current Housing: I Have Housing Concerned About Future Housing: No Difficulty Paying Gas/Electric Bills: No Difficulty Paying for Meds: No Currently Unemployed: No Education: Bachelor's Degree Difficulty w/ Childcare or Family Care: No Living arrangements: with family Additional living arrangements comments: Occupation/Education: occupation Additional occupation/education comments: [employer] Gender identity (if verbalized by the patient): Female Sexual Orientation (if Verbalized by the Patient): Straight or Heterosexual Spiritual care concerns: No Exam Narrative: GENERAL: mildly Ill-appearing, nontoxic no acute distress. EYES: conjunctivae clear ENT: Mucous membranes moist. nasal congestion noted. TM pearly arana with dull light reflex bilaterally; no tragal tenderness. Oropharynx not erythematous without lesions or exudate, no drooling, no hoarseness, no trismus, uvula midline. No tripod positioning, muffled voice, soft palate or pharyngeal wall bulging NECK: Supple. No lymphadenopathy CHEST: Clear to auscultation, breath sounds equal. No wheezing, rhonchi, rales, or stridor. No respiratory distress, speaks in full sentences. HEART: Regular rate and rhythm. No murmur heard. SKIN: Warm, dry, no rash. NEURO: Alert and oriented x3. PSYCH: Normal mood and affect Course Course Emergency Course: Patient is aware of diagnosis, understands and agrees to treatment plan. Anticipatory guidance given. Patient agrees to follow-up as directed and is aware of reasons to seek care at the emergency department. Portions of this record may have been created with voice recognition software Level of Care: Express Care Visit Vital Signs Vital signs: reviewed MDM - URI/Sore Throat MDM Narrative Medical decision making narrative: Discussed physical exam findings c/w sinusitis. Advised supportive measures and signs/symptoms to go to the ER. Pt is appropriate for outpt treatment and f/u. Differential Diagnosis Differential diagnosis: Likely upper respiratory infection, sinusitis and viral infection Discharge Plan Discharge Clinical Impression: Sinusitis Patient Disposition: Home Condition: Stable Instructions: Antibiotic Form, Rhinosinusitis (ED) Additional Instructions: Take antibiotic as directed Recommendations: Flonase spray and Zyrtec (or Claritin/Paula) Tylenol 1000mg every 8 hours as needed for pain Follow up with your primary care provider in 1 week. Go to the ER for worsening symptoms or concerns. Patient Language: Iranian Prescriptions: New amoxicillin-pot clavulanate 875-125 mg tablet 1 tablet PO Q12H 7 Days Qty: 14 0RF No Action Breo Ellipta 50-25 mcg/dose blister with device inhalation fexofenadine [Paula Hives] 180 mg tablet 180 mg PO DAILY drospirenone-ethinyl estradiol 3-0.02 mg tablet 1 tablet PO DAILY Qty: 84 4RF Rx Instructions: Take 1 tablet by mouth daily in continuous manner skipping placebo pills. Follow-up/Referrals: Grace,BONITA Garner [Primary Care Provider, Unknown] Time of Disposition: 14:07
== END 2025-06-21 14:09 | disposition home or self-care (01) ==
PROVIDERS: Emergency Provider Nurse Practitioner Family; PCP Nurse Practitioner
DX: J32.9 Chronic sinusitis, unspecified (principal); J45.909 Unspecified asthma, uncomplicated; M41.9 Scoliosis, unspecified
CPT/HCPCS: 99213; G0463

== ENCOUNTER 2025-08-17 10:54 | Emergency (ER) | payer OTHER, SELFPAY ==
--- OUTSIDE RECORDS SUMMARY | 2025-08-17 11:00 | XMS_ITS | Clinical Summary ---
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 Body Mass Index 34.52 07/31/2023 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 Plan of Treatment Health Maintenance Due Date Last Done Comments Cervical Cancer Screening Pa p Smear (Age 30 to 64) Every 3 Years 1986 Hepatitis C 2004 Hepatitis B Vaccines (1 of 3 - 19+ 3-dose series) 2005 HPV Vaccines (1 - 3-dose SCD M series) 2013 Cervical Cancer Screening Andrew castañeda with HPV Testing (Age 30 to 64) Every 5 Years 2016 Cervical Cancer Screening with HPV 2016 Annual Physical 07/31/2024 07/31/2023 PHQ-2 (Physician [place]) 09/11/2024 07/31/2023 COVID-19 Vaccine (1 - 2024-2 6 season) 2025 Influenza Adult (#1) 2025 DTaP, Tdap and Td Vaccines ( 2 - Td or Tdap) 02/08/2026 02/09/2016 Hepatitis A Vaccines Aged Out No long er eligible based on patient's age to complete this topic Meningococcal B Vaccine Aged Out No l [...] patient's age to complete this topic Insurance [facility] Care Teams Dry Transfer Man Relationship Specialty Start Date End Date Carmen Edwards NP [address] [place] [address] PCP - General NURSE PRACTITIONER 06/07/23
--- NOTE | 2025-08-17 11:02 | ED.EAR ---
HPI - Ear Problem General Chief complaint: Ear Stated complaint: Ear Time Seen by Provider: 08/17/25 11:30 Source: patient and RN notes reviewed Mode of arrival: ambulatory Limitations: no limitations History of Present Illness HPI Narrative: 39-year-old female with history of sinus surgery presents with concern for sinus pressure, congestion, drainage for about 5-6 days, she began having ear pain. She reports history of ear infections. She denies fever, aches, chills, sweats. She has been using ibuprofen and started using Sudafed drained yesterday. MD Complaint: ear pain Related Data Home Medications ?Medication ?Instructions ?Recorded ?Confirmed ?Last Taken ?Type fexofenadine 180 mg tablet 180 mg PO DAILY 11/19/24 11/19/24 Unknown History (Paula De Los Santos) fluticasone furoate 50 inhalation 11/19/24 11/19/24 Unknown History mcg-vilanterol 25 mcg/dose inhalation powder (Breo Ellipta) Allergies Allergy/AdvReac Type Severity Reaction Status Date / Time prednisone AdvReac Intermediate breast Verified 08/17/25 11:28 tenderness, abnormal menses, spotting Review of Systems Review of Systems: CONSTITUTIONAL: Denies malaise, chills, sweats, or fever. EYES: Denies visual changes, redness, or discharge. ENT: Reports rhinorrhea, congestion, ear pain CARDIOVASCULAR: Denies chest pain, palpitations, or edema. RESPIRATORY: Denies cough. Denies dyspnea. GASTROINTESTINAL: Denies abdominal pain, nausea, vomiting, diarrhea SKIN: Denies rash or itching. MUSCULOSKELETAL: Denies myalgia. NEUROLOGIC: Denies headache. All systems reviewed & are unremarkable except as noted in HPI and below PMFSH Past Medical History Medical History Asthma Nasal polyps Vaginal delivery 02/08/16 no complications, epidural didn't take b/c of scoliosis Jennifer 12/15/17 no complications Maricruz Scoliosis HPV in female Abnormal Pap smear of cervix 05/2006 ascus, 06/20/2006 cx bx/ecc: mild dysplasia lgsil, TRISH I, 09/20/2006 ascus, hpv+, 12/29/2006 ascus, hpv-, 07/16/2007 ascus, hpv+, 07/22/2008 ascus, hpv+ : 07/14/2021 +HPV Surgical History Surgical History H/O sinus surgery (12/29/23) deviated septum History of 03/10/20 primary c/s-breech presentation History of gynecologic surgery 05/25/11 excisional bx vaginal lesion--molluscum contagiosum History of colposcopy with cervical biopsy 06/20/06 LGSIL TRISH I History of wisdom tooth extraction (~2003) Family History Family History Father Hypertension Mother Hypertension COPD (chronic obstructive pulmonary disease) Malignant tumor of ovary Social History Social History Smoking status: Never smoker Second hand tobacco smoke exposure: No Alcohol intake: current Alcohol use details: occasional 1-2 every 2 months Substance use: never Substance use type: does not use Lack of Transportation: No Lack of Food: Never True Current Housing: I Have Housing Concerned About Future Housing: No Difficulty Paying Gas/Electric Bills: No Difficulty Paying for Meds: No Currently Unemployed: No Education: Bachelor's Degree Difficulty w/ Childcare or Family Care: No Living arrangements: with family Additional living arrangements comments: Occupation/Education: occupation Additional occupation/education comments: [employer] Gender identity (if verbalized by the patient): Female Sexual Orientation (if Verbalized by the Patient): Straight or Heterosexual Spiritual care concerns: No Comments At time of signature, agree with nursing past medical, surgical, social and family history. There is no relevant family history pertinent to the presenting complaint Exam Narrative: GENERAL: Well-appearing, well-nourished, and in no acute distress. HEAD: Normocephalic EYES: PERRLA, conjunctivae clear ENT: Nares clear, turbinates edematous, clear discharge. Mucous membranes moist. TM pearly arana with sharp light reflex bilaterally; no tragal tenderness, EAC unremarkable. No post or pre-auricular erythema, induration, or warmth noted. Oropharynx not erythematous without lesions. Tonsils not enlarged and without exudate, no drooling, no hoarseness, no trismus, uvula midline. NECK: Supple. No lymphadenopathy CHEST: Clear to auscultation, breath sounds equal. No wheezing, rhonchi, rales, or stridor. No respiratory distress, speaks in full sentences. HEART: Regular rate and rhythm. No murmur heard. SKIN: Warm, dry, no rash. NEURO: Alert and oriented x3. PSYCH: Normal mood and affect Course Course Emergency Course: Patient is aware of diagnosis, understands and agrees to treatment plan. Anticipatory guidance given. Patient agrees to follow-up as directed and is aware of reasons to seek care at the emergency department. Portions of this record may have been created with voice recognition software Level of Care: Express Care Visit MDM Differential Diagnosis Differential Diagnosis: Differential diagnosis considered: Rodriguez virus, strep pharyngitis, allergic rhinitis, upper respiratory tract infection, sinusitis, rhinosinusitis, nasopharyngitis. viral pharyngitis, otitis media, otitis externa, mastoiditis, eustachian tube dysfunction, cerumen impaction, cellulitis, foreign body, viral syndrome, and influenza. Exam findings show no acute concerns or changes; patient is non-toxic appearing and is in no distress. Patient is appropriate for outpatient treatment and follow-up. Discharge Plan Discharge Clinical Impression: Upper respiratory infection Patient Disposition: Home Condition: Stable Instructions: Upper Respiratory Infection (ED) Additional Instructions: Take medication as prescribed Nonprescription pain medications, such as acetaminophen (eg, Tylenol) or ibuprofen (eg, Motrin, Advil), are recommended for pain. Flushing the nose and sinuses with a saline solution several times per day has been proven to decrease pain associated with congestion and shorten the duration of symptoms. Nasal steroids (such as Flonase, 2 sprays in each nostril daily) can help to reduce swelling inside the nose, usually within two to three days. These drugs have few side effects and relieve symptoms in most people. Oral decongestants (pseudoephedrine and phenylephrine) may be helpful if you have associated symptoms of ear pain or fullness. Nasal decongestant sprays, including oxymetazoline (Afrin) and phenylephrine (Fermín-Synephrine), can be used to temporarily treat congestion. However, these sprays should not be used for more than two to three days due to the risk of rebound congestion (when the nose becomes congested constantly unless the medication is used repeatedly), possible addiction, and long-term consequences of frequent use, including persistent nasal dryness and crusting, which is very difficult to treat once it has developed. Medications to thin secretions (such as guaifenesin) may help to clear mucus. Please follow-up with your primary care doctor in the next 1-2 days. If you cannot follow-up with your primary care doctor please go to the ED for any urgent issues. If you have any worsening of symptoms or any other concerns please go to the ED immediately. Patient Language: Estonian Prescriptions: New prednisone 20 mg tablet 40 mg PO DAILY 5 Days Qty: 10 0RF No Action Breo Ellipta 50-25 mcg/dose blister with device inhalation fexofenadine [Paula Hives] 180 mg tablet 180 mg PO DAILY drospirenone-ethinyl estradiol 3-0.02 mg tablet 1 tablet PO DAILY Qty: 84 4RF Rx Instructions: Take 1 tablet by mouth daily in continuous manner skipping placebo pills. Follow-up/Referrals: Grace,BONITA Garner [Primary Care Provider, Unknown] Time of Disposition: 11:50
[2025-08-17 11:24] VITALS: BP 132/72; PULSE 88; RESP 16; TEMP 36.4; O2SAT 99
== END 2025-08-17 11:55 | disposition home or self-care (01) ==
PROVIDERS: Emergency Provider Nurse Practitioner; PCP Nurse Practitioner
DX: J06.9 Acute upper respiratory infection, unspecified (principal); J45.909 Unspecified asthma, uncomplicated; M41.9 Scoliosis, unspecified
CPT/HCPCS: 99213; G0463